=== PATIENT | female | born 2000 | race Caucasian/White ===

== ENCOUNTER 2023-12-09 01:07 | Emergency (ER) | payer OTHER ==
[2023-12-09] MEDS ORDERED: Bacitracin 1 PK ONE (01:52)
[2023-12-09] MEDS ORDERED: Lidocaine 1% w/Epinephrine 1:200K 30 ML VIAL ONE (01:52)
== END 2023-12-09 03:06 | disposition home or self-care (01) ==
LOC: CSHERS 01:07
DX: S01.81XA Laceration without foreign body of other part of head, initial encounter (principal); R55 Syncope and collapse; W19.XXXA Unspecified fall, initial encounter
CPT/HCPCS: 12013; 93005; 99284